=== PATIENT | male | born 1970 | race Caucasian/White ===

== ENCOUNTER 2017-08-07 12:52 | Inpatient (IN) | payer BC, OTHER ==
[~2017-08-07] VITALS: Ht 185.4 cm; Wt 95.3 kg
[2017-08-08] MEDS ORDERED: LORAZEPAM 2 MG/1 ML VIAL IM PRN (02:30)
[2017-08-08] MEDS ORDERED: THIAMINE HCL 200 MG/2 ML VIAL IM ONE (02:30)
[2017-08-08] MEDS ORDERED: IBUPROFEN 600 MG TABLET PO PRN (02:30)
[2017-08-08] MEDS ORDERED: ACETAMINOPHEN 325 MG TABLET PO PRN (02:30)
[2017-08-08] MEDS ORDERED: LOPERAMIDE HCL 2 MG CAPSULE PO PRN ×2 (02:30)
[2017-08-08] MEDS ORDERED: ONDANSETRON 4 MG/2 ML VIAL IM PRN (02:30)
[2017-08-08] MEDS ORDERED: MAG HYDROX/AL HYDROX/SIMETH 30 ML LIQUID UDC PO PRN (02:30)
[2017-08-08] MEDS ORDERED: MAGNESIUM HYDROXIDE 30 ML LIQUID UDC PO PRN (02:30)
[2017-08-08] MEDS ORDERED: MIRALAX 17 GM POWD.PACK PO PRN (02:30)
[2017-08-08] MEDS ORDERED: LORAZEPAM 1 MG TABLET PO PRN ×3 (02:30)
[2017-08-08] MEDS ORDERED: HYDROXYZINE PAMOATE 25 MG CAPSULE PO PRN (02:30)
[2017-08-08] MEDS ORDERED: diphenhydrAMINE 50 MG CAPSULE PO PRN (02:30)
[2017-08-08] MEDS ORDERED: ONDANSETRON ODT 4 MG TAB.RAPDIS SL PRN (02:30)
--- NOTE | 2017-08-08 02:30 | NUR ---
PRE - ADMISSION NOTE: Patient is a 47 year old male AOX4, presented to [facility] to detoxify from ETOH/Alcohol and Cocaine. CIWA 7. Patient appears anxious, nervous, tremors to touch with flushed face. Patient is cooperative, speech is clear and audible. Patient reports NKA. Patient's vital signs are as follows: BP 146/77, HR 83, T: 98.4, RA SPO2 95%, pain level "0/10". Patient denies any pain at this time. Patient instructed on unit protocol of vitals Q4H and COWS/CIWA assessments. Patient verbalized understanding and agreement. Patient also instructed on policy regarding destruction of any controlled substances/prescriptions brought to facility, and handling of all medications. Patient verbalized understanding and agreement. Will complete admission assessment when patient is brought up to unit.
--- NOTE | 2017-08-08 02:32 | NUR ---
ADMISSION NOTE Patient is a 47 year old male admitted to [facility] on 08/07/2017 at 0228 for medically supervised safety withdrawal from ETOH and Cocaine. Patient reports NKA. Patient is on Full Code, Regular Diet, Fall and Seizures Precautions. Patient denies a history of withdrawal-induced seizures. Past Medical History: Anxiety, Depression, Alcohol, PCP, cocaine, and marijuana use. Patient denies Past Surgical History. Patient "does not has PCP". Pre-assessment completed in intake. Patient provided UDS test at this time. Height: 73 in, Weight: 210 lbs by standing scale. Patient is ambulatory with steady gate, A&Ox4, speech is clear. VS upon admission: BP 146/77, HR 85, T 98.4, RA SPO2 95%, pain level "0/10". CIWA 7. The patient presented with anxiety, agitation, nervousness, tremors that can be felt, diaphoresis, restless legs, and fatigue. Patient denies SI/HI. Upon initial assessment respirations unlabored and even. Patient denies SOB and chest pain. Lungs Sounds are clear bilaterally. Bowel Sounds active in all x4 quadrants. Abdomen is soft and non-tender. PERRLA, brisk capillary refill, service planner equal and strong. Skin is intact, warm and dry to touch. Patient reports the following Substances Use: 1 ."Alcohol PO . Patient reports drinking 5 pints of vodka three times at week since 2003. Last drank 1 pint of Vodka on 08/07/2017 @PM". 2. "PCP smoking 1 cigarette times at week since 2003 Last smoked 1 cigarette on 08/05/2017". 3. "Cocaine smoking 4-5 grams every day since 2003. Last smoked 4 grams on 08/07/2017 @ PM". 4. "Marijuana smoking unknown amount every day since 1979. Last smoked unknown amount on 08/07/2017 @ PM". Longest sober period was "5 years: 1998 - 2003". Patient reports "Tobacco use since 1979 every day 1 pack = 20 cigarettes". Patient reports Treatment History: "[facility] in 1998". Patient did not brought medications. Patient oriented to his room, Nurse Call Light, and [facility]. Encourage fluids as tolerated. Encourage to attend activities groups. All needs met. Safety measures on place. Call light within reach, bed in lowest Addendum: 08/08/17 at 0538 by JOSIE JOHNSON RN Patient is a 47 year old male admitted to [facility] on 08/08/2017 at 0228 for medically supervised safety withdrawal from ETOH, PCP, Cocaine, and Marijuana. Addendum: 08/08/17 at 0600 by JOSIE JOHNSON RN "PCP smoking 1 cigarette 3 times at week since 2003. Last smoked 1 cigarette on 08/05/2017".
[2017-08-08 03:00] LABS: BASOPHILS % (AUTO) 0.4 % (0.0-2.0); EOSINOPHILS # (AUTO) 0.2 K/uL (0.0-0.7); EOSINOPHILS % (AUTO) 3.9 % (0.0-7.0); HEMATOCRIT 42.3 % (40-50); HEMOGLOBIN 13.3 G/DL (14.0-18.0); LYMPHOCYTES # (AUTO) 1.5 K/UL (0.8-4.8); LYMPHOCYTES % (AUTO) 29.1 % (20.5-51.5); MEAN CORPUSCULAR HEMOGLOBIN 27.1 UUG (27.0-31.0); MEAN CORPUSCULAR HGB CONC 31 g/dL (32.0-37.0); MEAN CORPUSCULAR VOLUME 86.2 FL (82.0-92.0); MONOCYTES # (AUTO) 0.4 K/UL (0.1-1.30); MONOCYTES % (AUTO) 8.2 % (0.0-11.0); NEUTROPHILS # (AUTO) 3.1 K/UL (1.8-8.9); NEUTROPHILS % (AUTO) 58.4 % (38.5-71.5); PLATELET COUNT (AUTO) 182 K/UL (150-450); WHITE BLOOD COUNT (AUTO) 5.2 K/UL (4.0-11.2)
[2017-08-08 03:10] LABS: *AMPHETAMINE, URINE NEGATIVE (NEGATIVE); *BARBITURATE, URINE NEGATIVE (NEGATIVE); *CANNABINOID, URINE POSITIVE (NEGATIVE); *COCCAINE, URINE POSITIVE (NEGATIVE); *OPIATE, URINE NEGATIVE (NEGATIVE); *PHENCYCLIDINE SCREEN,URINE POSITIVE (NEGATIVE)
[2017-08-08 03:14] LABS: ALANINE AMINOTRANSFERASE 19 U/L (16-63); ALKALINE PHOSPHATASE 56 U/L (50-136); AMYLASE 47 U/L (25-115); ASPARTATE AMINOTRANSFERASE 19 U/L (15-37); BILIRUBIN,TOTAL 0.3 mg/dL (0.2-1.0); CARBON DIOXIDE 29 mmol/L (21-32); CHLORIDE 104 mmol/L (98-107); CREATININE 1.3 mg/dL (0.6-1.3); GLUCOSE 97 mg/dL (74-106); LIPASE 113 U/L (73-393); MAGNESIUM 1.7 mg/dL (1.8-2.4); POTASSIUM 3.9 mmol/L (3.5-5.1); TOTAL PROTEIN, SERUM 7.1 g/dL (6.4-8.2); UREA NITROGEN, BLOOD 15 mg/dL (7-18)
[2017-08-08 03:24] LABS: ETHANOL < 3 MG/DL (0-0)
[2017-08-08 03:26] LABS: THYROID STIMULATING HORMONE 0.926 mIU/mL (0.358-3.740)
[2017-08-08 04:00] VITALS: BP 132/72
[2017-08-08] MEDS ORDERED: MAGNESIUM OXIDE 400 MG TABLET PO ONE (04:00)
[2017-08-08] MEDS ORDERED: MAGNESIUM OXIDE 400 MG TABLET ONE (04:09)
[2017-08-08] MEDS ORDERED: THIAMINE HCL 200 MG/2 ML VIAL ONE (04:09)
--- NOTE | 2017-08-08 07:11 | NUR ---
END OF SHIFT NOTE: Patient is a 47 year old male admitted to [facility] on 08/08/2017 at 0228 for medically supervised safety withdrawal from ETOH, PCP, Cocaine, and Marijuana. Patient reports NKA. Patient is on Full Code, Regular Diet, Fall and Seizures Precautions. Patient denies a history of withdrawal-induced seizures. Past Medical History: Anxiety, Depression, Alcohol, PCP, Cocaine, and Marijuana use. Patient denies Past Surgical History. Last CIWA 7. The patient presented with anxiety, agitation, nervousness, tremors that can be felt, diaphoresis, restless legs, and fatigue. Patient reports the following Substances Use: "Alcohol Oral: drinking 5 pints of vodka three times at week since 2003. Last drank 1 pint of Vodka on 08/07/2017 @PM", "PCP smoking 1 cigarette times at week since 2003 Last smoked 1 cigarette on 08/05/2017", "Cocaine smoking 4-5 grams every day since 2003. Last smoked 4 grams on 08/07/2017 @ PM", "Marijuana smoking unknown amount every day since 1979. Last smoked unknown amount on 08/07/2017 @ PM". Longest sober period was "5 years: 1998 -2003". Patient reports "Tobacco use since 1979 every day 1 pack = 20 cigarettes". Patient reports Treatment History: "[facility] in 1998". Last VS @0400: T:98.2, BP: 132/72, HR: 96, RA SPO2: 100%, RR 14, pain level "0/10". Patient denies SI/HI. Respirations unlabored and even. Patient denied SOB and chest pain. Abdomen is soft and non-tender. Skin is intact, warm, and dry to touch. No PRN administrated during my shift. Patient slept 2 hours, intake 500 ml, voided x2. Encouraged fluids intake as tolerated. All needs met. Safety measures on place. Call light within reach, bed in lowest position and locked, padded rails up bilaterally. Patient endorsed to day shift nurse. Report given.
[2017-08-08 08:00] VITALS: BP 138/75
--- NOTE | 2017-08-08 08:00 | NUR ---
START OF SHIFT: RECEIVED PT A/O X 4. HE PRESENTS WITH ANXIOUS MOOD AND CONGRUENT AFFECT CIWA 2. HE STATES HE FEELS FATIGUED AND WOULD LIKE TO REST. ADMINISTERED SCHEDULED VITAMINS ORDERED. ENCOURAGED INCREASED FLUIDS TO PROMOTE WELLNESS. WILL CONTINUE TO MONITOR AND OFFER SUPPORT.
[2017-08-08] MEDS: MULTIVITAMINS,THERAPEUTIC TABLET PO SCH (08:55)
[2017-08-08] MEDS: FOLIC ACID 1 MG TABLET PO SCH (08:55)
[2017-08-08] MEDS: THIAMINE HCL 100 MG TABLET PO SCH (08:55)
[2017-08-08 12:00] VITALS: BP 135/85
[2017-08-08 16:00] VITALS: BP 163/96
--- NOTE | 2017-08-08 18:44 | NUR ---
START OF SHIFT NOTE: Patient is a 47 year old male admitted to [facility] on 08/08/2017 for medically supervised safety withdrawal from ETOH, PCP, Cocaine, and Marijuana. Patient reports NKA. Patient is on Full Code, Regular Diet, Fall and Seizures Precautions. Patient denies a history of withdrawal-induced seizures. Past Medical History: Anxiety, Depression, Alcohol, PCP, Cocaine, and Marijuana use. Patient denies Past Surgical History. Upon endorsement, patient is in his room alert and oriented x4. Speech is soft and clear. CIWA 3. The patient presented with mild anxiety, agitation, and barely sweating. Patient denies nausea and vomiting. Patient denies SI/HI. VS: T:98.3, BP:140/76, HR: 88, RA SPO2: 99%, RR 19, pain level "0/10". Respirations unlabored and even. Patient denied SOB and chest pain. Abdomen is soft and non-tender. Skin is intact, warm, and dry to touch. Encouraged fluids intake as tolerated. Patient scheduled discharging tomorrow, on 08/09/2017. Encouraged fluids intake as tolerated. All needs met. Safety measures in place: Call light within reach, bed in lowest position and locked, padded rails up x2. Patient is endorsed by day shift nurse, report received. Will continue to monitor closely.
--- NOTE | 2017-08-08 18:44 | NUR ---
END OF SHIFT: PT CONTINUES ON OBSERVATION LEVEL OF CARE. PRNS DISCONTINUED FOR S/S OF W/D.NO PRNS GIVEN ON THIS SHIFT. PT SCHEDULED FOR DISCHARGE IN AM. PT VERBALIZED MOTIVATION TOWARD RECOVERY. HE ATTENDED GROUPS AND INTERACTED WITH PEERS. WILL PASS SHIFT REPORT TO ONCOMING NIGHT NURSE.
[2017-08-08 20:00] VITALS: BP 140/76
[2017-08-09] VITALS: BP 127/87
[2017-08-09 04:00] VITALS: BP 141/93
[2017-08-09 07:06] LABS: HEPATITIS B SURFACE AG Negative (Negative)
--- NOTE | 2017-08-09 07:21 | NUR ---
END OF SHIFT NOTE: Patient is a 47 year old male admitted to [facility] on 08/08/2017 for medically supervised safety withdrawal from ETOH, PCP, Cocaine, and Marijuana. Patient reports NKA. Patient is on Full Code, Regular Diet, Fall and Seizures Precautions. Patient denies a history of withdrawal-induced seizures. Past Medical History: Anxiety, Depression, Alcohol, PCP, Cocaine, and Marijuana use. Patient denies Past Surgical History. Last CIWA 2 @0400. The patient presented with anxiety, nervousness, and barely sweating. Last VS @0400: T:98.3, BP: 141/93, HR: 78, RA SPO2: 99%, RR 84, pain level "0/10". Patient denies SI/HI. Respirations unlabored and even. Patient denied SOB and chest pain. Abdomen is soft and non-tender. Patient denies nausea and vomiting. Skin is intact, warm, and dry to touch. No Medications administrated during my shift. Patient slept 7 hours, intake 1,400 ml, voided x3, stool x1. Patient attended group activities. Encouraged fluids intake as tolerated. Patient scheduled for discharging today, 08/09/2017 @ AM. All needs met. Safety measures on place. Call light within reach, bed in lowest position and locked, padded rails up bilaterally. Patient endorsed to day shift nurse. Report given.
--- NOTE | 2017-08-09 07:30 | NUR ---
START OF SHIFT NOTE: Received report from scene shifter nurse. Patient is a 47 year old male admitted to [facility] on 08/08/2017 for medically supervised safety withdrawal from ETOH, PCP, Cocaine, and Marijuana. To be discharged today. Pt is alert and oriented X4. Color good, skin warm and dry. Respirations even and unlabored. Safety precautions observed. Call light within reach.
[2017-08-09 08:23] VITALS: BP 150/88
[2017-08-09] MEDS: MULTIVITAMINS,THERAPEUTIC TABLET PO SCH (08:43)
[2017-08-09] MEDS: FOLIC ACID 1 MG TABLET PO SCH (08:43)
[2017-08-09] MEDS: THIAMINE HCL 100 MG TABLET PO SCH (08:43)
--- NOTE | 2017-08-09 08:46 | NUR ---
VSS Discharge papers signed. No home meds.
[2017-08-09] MEDS ORDERED: TUBERCULIN,PURIF.PROT.DERIV. 5 TU/0.1 ML TEST ID ONE (09:00)
--- NOTE | 2017-08-09 09:37 | NUR ---
Pt discharged in stable condition with all valuables and belongings. No home meds. Denies SI/HI To Able to Change via [employer] private car.
== END 2017-08-09 09:37 | disposition other institution (70) | DRG 897 ==
LOC: SRC 08-08 01:49
PROVIDERS: ADMIT Internal Medicine; ATTEND Internal Medicine
PROC: HZ2ZZZZ Detoxification Services for Substance Abuse Treatment (ICD-10-PCS; principal; 2017-08-08)
DX: F10.10 Alcohol abuse, uncomplicated (principal); F14.20 Cocaine dependence, uncomplicated; F16.10 Hallucinogen abuse, uncomplicated; Y90.0 Blood alcohol level of less than 20 mg/100 ml; F12.20 Cannabis dependence, uncomplicated; F17.210 Nicotine dependence, cigarettes, uncomplicated
CPT/HCPCS: 36415; 80307; 80349; 80353; 83690; 83735; 84443; 85025; 86592; 86705; 86803; 87340; 87806; G0480; J3411